=== PATIENT | male | born 1980 | race Caucasian/White ===

== ENCOUNTER 2020-09-29 14:19 | Emergency (ER) | payer SELFPAY ==
[~2020-09-29] VITALS: Ht 188 cm; Wt 103.0 kg
[2020-09-29 15:36] LABS: HEMATOCRIT 44.6 % (39.0-50.0); HEMOGLOBIN 14.8 g/dl (14.0-18.0); IMMATURE GRANULOCYTES 0.3 % (0.0-5.0); MEAN CELL VOLUME 91.2 fL CALC (80.0-100.0); MEAN CORPUSCULAR HGB 30.3 pG CALC (26.0-32.0); MEAN CORPUSCULAR HGB CONC 33.2 g/dL CAL (32.0-36.0); NEUT# 7.23 thou/uL (1.82-7.42); RED BLOOD COUNT 4.89 mill/uL (4.70-6.10); RED CELL DISTRI WIDTH 12.8 % (11.5-15.5)
[2020-09-29 15:37] LABS: URINE BILIRUBIN - DIPSTICK NEGATIVE (NEGATIVE); URINE BLOOD DIPSTICK MODERATE (NEGATIVE); URINE COLOR YELLOW; URINE GLUCOSE - DIPSTICK NEGATIVE (NEGATIVE); URINE KETONE NEGATIVE (NEGATIVE); URINE LEUK ESTERASE NEGATIVE (NEGATIVE); URINE NITRITE - DIPSTICK NEGATIVE (Negative); URINE PROTEIN - DIPSTICK NEGATIVE (NEG-TRACE); URINE SPECIFIC GRAVITY 1.025; URINE UROBILINOGEN - DIPSTICK 0.2 E.U./dL (0.2)
[2020-09-29 16:01] LABS: ALBUMIN 4.8 g/dL (3.2-5.0); ALKALINE PHOSPHATASE 58 u/l (38-126); ANION GAP 12 (6-22 (CALC)); BILIRUBIN, TOTAL 0.5 mg/dL (0.0-1.4); BUN 17 mg/dL (9-20); BUN/CREATININE RATIO 19 (12-20 (CALC)); CARBON DIOXIDE 26 mmol/l (22-30); CHLORIDE 108 mmol/l (95-108); CREATININE 0.9 mg/dL (0.7-1.3); GFR > 60 ML/MIN (>=60 (CALC)); GFR FOR AFR.AMER. > 60 ML/MIN (>=60 (CALC)); LIPASE 58 u/l (23-300); POTASSIUM 4.4 mmol/l (3.5-5.1); SGOT/AST 24 u/l (17-59); SODIUM 141 mmol/l (137-146); TOTAL PROTEIN 7.6 g/dL (6.3-8.2)
[2020-09-29 16:02] LABS: URINE SQUAMOUS EPITHELIAL CELL FEW EPI/hpf (0-FEW); URINE WBC 0-2 WBC/hpf (0-5)
[2020-09-29 16:38] VITALS: BP 122/62
== END 2020-09-29 16:35 | disposition home or self-care (01) | DRG 696 ==
LOC: ED 14:19
PROVIDERS: Family Medicine
DX: R31.9 Hematuria, unspecified (principal); Z87.442 Personal history of urinary calculi

== ENCOUNTER 2020-10-03 12:05 | Emergency (ER) | payer SELFPAY ==
[~2020-10-03] VITALS: Ht 188 cm; Wt 105.0 kg
[2020-10-03 12:58] LABS: HEMATOCRIT 44.9 % (39.0-50.0); HEMOGLOBIN 14.9 g/dl (14.0-18.0); IMMATURE GRANULOCYTES 0.2 % (0.0-5.0); MEAN CELL VOLUME 91.3 fL CALC (80.0-100.0); MEAN CORPUSCULAR HGB 30.3 pG CALC (26.0-32.0); MEAN CORPUSCULAR HGB CONC 33.2 g/dL CAL (32.0-36.0); NEUT# 6.3 thou/uL (1.82-7.42); RED BLOOD COUNT 4.92 mill/uL (4.70-6.10); RED CELL DISTRI WIDTH 12.9 % (11.5-15.5)
[2020-10-03 12:59] LABS: URINE BILIRUBIN - DIPSTICK NEGATIVE (NEGATIVE); URINE BLOOD DIPSTICK LARGE (NEGATIVE); URINE GLUCOSE - DIPSTICK NEGATIVE (NEGATIVE); URINE KETONE NEGATIVE (NEGATIVE); URINE LEUK ESTERASE TRACE (NEGATIVE); URINE PH 7.5 (4.5-8.0); URINE PROTEIN - DIPSTICK 30 mg/dL (NEG-TRACE); URINE SPECIFIC GRAVITY 1.025; URINE UROBILINOGEN - DIPSTICK 0.2 E.U./dL (0.2)
[2020-10-03 13:02] LABS: URINE COLOR RED; URINE NITRITE - DIPSTICK POSITIVE (Negative)
[2020-10-03 13:03] LABS: URINE BACTERIA FEW hpf; URINE RBC 50-100 RBC/hpf (0-5); URINE WBC 0-2 WBC/hpf (0-5)
[2020-10-03 13:06] LABS: ALBUMIN 4.5 g/dL (3.2-5.0); ALKALINE PHOSPHATASE 58 u/l (38-126); ANION GAP 13 (6-22 (CALC)); BILIRUBIN, TOTAL 0.6 mg/dL (0.0-1.4); BUN 13 mg/dL (9-20); BUN/CREATININE RATIO 17 (12-20 (CALC)); CARBON DIOXIDE 23 mmol/l (22-30); CHLORIDE 107 mmol/l (95-108); CREATININE 0.8 mg/dL (0.7-1.3); GFR > 60 ML/MIN (>=60 (CALC)); GFR FOR AFR.AMER. > 60 ML/MIN (>=60 (CALC)); LIPASE 44 u/l (23-300); POTASSIUM 3.9 mmol/l (3.5-5.1); SGOT/AST 21 u/l (17-59); SODIUM 140 mmol/l (137-146); TOTAL PROTEIN 7.1 g/dL (6.3-8.2)
[2020-10-03] MEDS ORDERED: OMNI-PAC300 MG PO (13:44)
[2020-10-03 13:55] VITALS: BP 121/68
== END 2020-10-03 14:02 | disposition home or self-care (01) | DRG 690 ==
LOC: ED 12:05
PROVIDERS: Family Medicine
DX: N39.0 Urinary tract infection, site not specified (principal); R31.9 Hematuria, unspecified; N20.0 Calculus of kidney; F17.200 Nicotine dependence, unspecified, uncomplicated; Z87.442 Personal history of urinary calculi
CPT/HCPCS: Q9967

== ENCOUNTER 2022-09-20 09:02 | Emergency (ER) | payer SELFPAY ==
[2022-09-20] VITALS (18 sets, daily range): BP systolic 99–133; BP diastolic 55–85
[~2022-09-20] VITALS: Ht 188 cm; Wt 111.3 kg
[~2022-09-20 09:02] MED LIST: OMNI-PAC300 MG PO
[2022-09-20] MEDS ORDERED: KEFLEX500 MG PO (09:30)
[2022-09-20 10:17] LABS: HEMATOCRIT 42.2 % (39.0-50.0); HEMOGLOBIN 13.8 g/dl (14.0-18.0); MEAN CELL VOLUME 93.2 fL CALC (80.0-100.0); MEAN CORPUSCULAR HGB 30.5 pG CALC (26.0-32.0); MEAN CORPUSCULAR HGB CONC 32.7 g/dL CAL (32.0-36.0); NEUT# 5.02 thou/uL (1.82-7.42); RED BLOOD COUNT 4.53 mill/uL (4.70-6.10); RED CELL DISTRI WIDTH 13.4 % (11.5-15.5)
[2022-09-20 10:29] LABS: ALBUMIN 4.3 g/dL (3.2-5.0); ALKALINE PHOSPHATASE 49 u/l (38-126); ANION GAP 12 (6-22 (CALC)); BUN 10 mg/dL (9-20); BUN/CREATININE RATIO 13 (12-20 (CALC)); CARBON DIOXIDE 24 mmol/l (22-30); CHLORIDE 107 mmol/l (95-108); CREATININE 0.7 mg/dL (0.7-1.3); GFR FOR AFR.AMER. > 60 ML/MIN (>=60 (CALC)); GFR OTHER RACES > 60 ML/MIN (>=60 (CALC)); POTASSIUM 4.4 mmol/l (3.5-5.1); SGOT/AST 26 u/l (17-59); SODIUM 139 mmol/l (137-146); TOTAL PROTEIN 6.4 g/dL (6.3-8.2)
[2022-09-20 10:38] LABS: BILIRUBIN, TOTAL 0.2 mg/dL (0.0-1.4)
[2022-09-20 11:47] LABS: URINE BILIRUBIN - DIPSTICK NEGATIVE (NEGATIVE); URINE BLOOD DIPSTICK LARGE (NEGATIVE); URINE GLUCOSE - DIPSTICK NEGATIVE (NEGATIVE); URINE KETONE NEGATIVE (NEGATIVE); URINE LEUK ESTERASE NEGATIVE (NEGATIVE); URINE PROTEIN - DIPSTICK 30 mg/dL (NEG-TRACE); URINE UROBILINOGEN - DIPSTICK 0.2 E.U./dL (0.2)
[2022-09-20 11:58] LABS: URINE NITRITE - DIPSTICK NEGATIVE (Negative)
[2022-09-20 11:59] LABS: URINE COLOR BLOODY
[2022-09-20 12:11] LABS: URINE EPITHELIAL CELLS FEW EPI/hpf (0-FEW); URINE RBC 50-100 RBC/hpf (0-5)
== END 2022-09-20 13:18 | disposition home or self-care (01) | DRG 700 ==
LOC: ED 09:02
PROVIDERS: Family Medicine
DX: T83.83XA Hemorrhage due to genitourinary prosthetic devices, implants and grafts, initial encounter (principal)

== ENCOUNTER 2022-09-22 06:08 | Emergency (ER) | payer SELFPAY ==
[~2022-09-22] VITALS: Ht 188 cm; Wt 110.0 kg
[~2022-09-22 06:08] MED LIST changes: +KEFLEX500 MG PO
[2022-09-22 06:40] LABS: URINE BLOOD DIPSTICK LARGE (NEGATIVE); URINE COLOR YELLOW; URINE GLUCOSE - DIPSTICK NEGATIVE (NEGATIVE); URINE KETONE TRACE mg/dL (NEGATIVE); URINE LEUK ESTERASE TRACE (NEGATIVE); URINE PROTEIN - DIPSTICK 100 mg/dL (NEG-TRACE); URINE SPECIFIC GRAVITY 1.025
[2022-09-22 06:41] LABS: URINE BILIRUBIN - DIPSTICK MODERATE (NEGATIVE); URINE NITRITE - DIPSTICK POSITIVE (Negative)
[2022-09-22 06:42] LABS: URINE BACTERIA MANY hpf; URINE RBC >100 RBC/hpf (0-5); URINE SQUAMOUS EPITHELIAL CELL FEW EPI/hpf (0-FEW)
[2022-09-22 07:26] LABS: HEMATOCRIT 46.1 % (39.0-50.0); HEMOGLOBIN 15.2 g/dl (14.0-18.0); IMMATURE GRANULOCYTES 0.1 % (0.0-5.0); MEAN CELL VOLUME 93.1 fL CALC (80.0-100.0); MEAN CORPUSCULAR HGB 30.7 pG CALC (26.0-32.0); NEUT# 8.93 thou/uL (1.82-7.42); RED BLOOD COUNT 4.95 mill/uL (4.70-6.10); RED CELL DISTRI WIDTH 13.6 % (11.5-15.5)
[2022-09-22 07:40] LABS: ANION GAP 17 (6-22 (CALC)); BUN 12 mg/dL (9-20); BUN/CREATININE RATIO 15 (12-20 (CALC)); CARBON DIOXIDE 21 mmol/l (22-30); CHLORIDE 107 mmol/l (95-108); CREATININE 0.8 mg/dL (0.7-1.3); GFR FOR AFR.AMER. > 60 ML/MIN (>=60 (CALC)); GFR OTHER RACES > 60 ML/MIN (>=60 (CALC)); POTASSIUM 4.9 mmol/l (3.5-5.1); SODIUM 139 mmol/l (137-146)
[2022-09-22] MEDS ORDERED: CEPHALEXIN500 MG PO ×2 (09:11→09:29)
[2022-09-22 09:41] VITALS: BP 131/85
== END 2022-09-22 09:42 | disposition home or self-care (01) | DRG 690 ==
LOC: ED 06:08
PROVIDERS: Family Medicine
DX: N39.0 Urinary tract infection, site not specified (principal); R31.9 Hematuria, unspecified

== ENCOUNTER 2022-11-09 07:17 | Day surgery (SDC) | payer SELFPAY ==
[~2022-11-09] VITALS: Ht 188 cm; Wt 108.9 kg
[~2022-11-09 07:17] MED LIST changes: +CEPHALEXIN500 MG PO; +TAMSULOSIN HYD0.4 MG PO
[2022-11-09 14:31] VITALS: BP 130/89
== END 2022-11-09 12:25 | disposition home or self-care (01) | DRG 657 ==
LOC: ORM 07:17
PROVIDERS: ATTEND Urology
PROC: 0T5B8ZZ Destruction of Bladder, Via Natural or Artificial Opening Endoscopic (ICD-10-PCS; principal; 2022-11-09)
PROC: 0T768DZ Dilation of Right Ureter with Intraluminal Device, Via Natural or Artificial Opening Endoscopic (ICD-10-PCS; 2022-11-09)
DX: C67.6 Malignant neoplasm of ureteric orifice (principal); C67.5 Malignant neoplasm of bladder neck; N40.1 Benign prostatic hyperplasia with lower urinary tract symptoms; N13.8 Other obstructive and reflux uropathy; R33.8 Other retention of urine; N20.0 Calculus of kidney; F17.210 Nicotine dependence, cigarettes, uncomplicated
CPT/HCPCS: C1769; J0131; J1956; Q9967

== ENCOUNTER 2024-06-08 13:43 | Emergency (ER) | payer SELFPAY ==
[2024-06-08] VITALS (11 sets, daily range): BP systolic 114–147; BP diastolic 67–94
[~2024-06-08] VITALS: Ht 188 cm; Wt 115.0 kg
[2024-06-08 14:44] LABS: BASO% 0.3 % (0-3); EOS% 0.4 % (0-8); HEMATOCRIT 48.9 % (39.0-50.0); IMMATURE GRANULOCYTES 0.1 % (0.0-5.0); LYMPH% 13.8 % (15-41); MEAN CELL VOLUME 91.1 fL CALC (80.0-100.0); MEAN CORPUSCULAR HGB 29.8 pG CALC (26.0-32.0); MEAN CORPUSCULAR HGB CONC 32.7 g/dL CAL (32.0-36.0); MONO% 6.1 % (2-13); NEUT# 11.88 thou/uL (1.82-7.42); NEUT% 79.3 % (42-76); RED BLOOD COUNT 5.37 mill/uL (4.70-6.10); RED CELL DISTRI WIDTH 14.6 % (11.5-15.5)
[2024-06-08 14:46] LABS: URINE BLOOD DIPSTICK Moderate (NEGATIVE); URINE GLUCOSE - DIPSTICK Negative (NEGATIVE); URINE KETONE 80 mg/dL (NEGATIVE); URINE LEUK ESTERASE Negative (NEGATIVE); URINE NITRITE - DIPSTICK Negative (Negative); URINE PROTEIN - DIPSTICK 100 mg/dL (NEG-TRACE); URINE SPECIFIC GRAVITY 1.025
[2024-06-08 14:54] LABS: URINE COLOR Yellow
[2024-06-08 15:00] LABS: ALBUMIN 4.8 g/dL (3.2-5.0); ALKALINE PHOSPHATASE 69 u/l (38-126); ANION GAP 11 (6-22 (CALC)); BUN 16 mg/dL (9-20); BUN/CREATININE RATIO 17 (12-20 (CALC)); CARBON DIOXIDE 22 mmol/l (22-30); CHLORIDE 110 mmol/l (95-108); CREATININE 0.9 mg/dL (0.7-1.3); ESTIMATED GFR 109 ML/MIN (>=90 (CALC)); INTERNATIONAL NORMALIZED RATIO 1.1 RATIO (0.7-1.3); SODIUM 140 mmol/l (137-146)
[2024-06-08 15:06] LABS: URINE RENAL EPITHELIAL CELLS FEW hpf
[2024-06-08 15:07] LABS: PROTHROMBIN TIME 10.5 SECONDS (9.0-12.5)
[2024-06-08 15:09] LABS: BILIRUBIN, TOTAL 1.5 mg/dL (0.2-1.3); SGOT/AST 66 u/l (17-59); TOTAL PROTEIN 8.1 g/dL (6.3-8.2)
[2024-06-08] MEDS ORDERED: DOXYCYCLINE HYCLATE 100 MG in SODIUM CHLORIDE 0.9% 100 ML IV ONE (16:30)
[2024-06-08] MEDS ORDERED: VIBRAMYCIN100 M2 PO (16:36)
== END 2024-06-08 17:42 | disposition home or self-care (01) | DRG 603 ==
LOC: ED 13:43
PROVIDERS: Nurse Practitioner
DX: L03.115 Cellulitis of right lower limb (principal); C67.9 Malignant neoplasm of bladder, unspecified; Z87.442 Personal history of urinary calculi
CPT/HCPCS: Q9967